=== PATIENT | female | born 1960 | race African-American/Black ===

== ENCOUNTER → 2017-01-25 | Outpatient (CLI) | payer OTHER ==
[~2017-01-25] MED LIST: DARVOCET-N 1001 TAB PO; GLUCOTROL PO; METFORMIN PO; SEROQUEL PO
--- NOTE | ~2017-01-25 | MR61 ---
[facility] A Service of [facility] & [facility] RADIOLOGY TEXT RESULTS PATIENT: JOSE ACEVES LOCATION: [facility] : 56 UNIT #: [id number] AGE: [address]: Dallas Leija Jr, MD SEX: F ORDER DR: [id number] [address] [id number] O MR#: [id number] Acc #: [id number] NAME: JOSE ACEVES : 1960 SEX: F STUDY DATE/TIME: 01/25/2017 11:16 UNIT: [facility] ROOM: STUDY DESCRIPTION: MR Foot Wo Contrast Rt Attending Physician: Dallas Leija Jr., M.D. Ordering Physician: Dallas Leija Jr., M.D. Primary Care Physician: Dallas Leija Jr., M.D. MRI CENTER REPORT This report is preliminary unless electronic signature is present. EXAM MRI right ankle and hindfoot without contrast 01/25/2017. COMPARISON No correlative studies. HISTORY Clarified order states MRI right hind foot. Right swelling. Pain, decreased range of motion. History sheet states no known injury and no ankle or foot surgery. Diffuse right foot pain, swelling. Difficulty bearing weight. Patient is ambulatory. Patient states difficulty with foot for 2-3 months, but worse over the last 2-3 weeks. History of cirrhosis, chronic kidney disease, CHF, anemia, diabetes. No wound, redness, bruising. Signature prison patient. FINDINGS There is pes planus without posterior tibial tendinopathy or tear. There is slight plantar tilt of the head of the talus as well as plantar medial displacement of the navicular with no significant navicular interposed between the talar head and the medial and lateral cuneiforms. The medial aspect of the displaced navicular appears to be in a weightbearing location. There may be a lateral navicular chronic fracture fragment interposed between the talar head and the lateral cuneiform. If this is an osseous fragment, it appears to be necrotic. 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 This large zone of avascular necrosis and/or erosion measures 2.9 cm AP x 1.6 cm craniocaudal x 1.9 cm transverse. Extending from this area of talar abnormality is loss of lateral talar cortex and adjacent soft tissue mass-like abnormality involving the flattened/ collapsed sinus tarsi and extending along the lateral margin of the talus. [facility]. [facility] A Service of [facility] RADIOLOGY TEXT RESULTS PATIENT: JOSE ACEVES LOCATION: [facility] : 56 UNIT #: [id number] AGE: [address]: Dallas Leija Jr, MD SEX: F ORDER DR: Small erosions are also noted at the apposing calcaneus near the angle of Gissane and anterior aspect of the posterior facet. There is marrow edema throughout the upper calcaneus and throughout the talus. There is tibiotalar effusion, anterior subluxation of the talar dome relative to the tibial plafond, and tibial plafond marrow edema in addition to the diffuse talar edema. No focal chondral/osteochondral lesion or loose body is noted at the tibiotalar joint. There is lack of definition of the anterior talofibular and calcaneofibular ligaments, likely sequela of old injury. Alternatively, they may be obscured by the large soft tissue masslike abnormality along the lateral hindfoot noted above, just lateral to the large talar abnormality. This large mass-like area measures at least 5.7 cm in AP dimension x 1.5 cm in transverse dimension. The ankle ligaments are otherwise unremarkable. Ankle tendons are intact except for short segment peroneus brevis retromalleolar tendinosis and mild attenuation, but no split tear. There is generalized subcutaneous and deep soft tissue edema in the hindfoot. There is mild edema of the flexor hallucis longus muscle and anterior compartment musculature in a pattern raising the possibility of denervation edema. There is also prominent atrophy of the quadratus plantae, abductor digiti minimi, extensor digitorum brevis, and flexor digitorum brevis muscles in the foot. Atrophy of the forefoot intrinsic musculature is noted. Findings most commonly related to peripheral neuropathy. No midfoot malalignment or midfoot fracture is noted. There is arthritic change at the navicular-medial and navicular-intermediate cuneiform articulations. Overall findings are most concerning for neuropathic change predominating in the talonavicular joint. Gouty arthropathy is an additional consideration. The pattern is less suggestive of infection, especially in the absence of a wound. There is marked thickening of the anterior tibiotalar joint capsule. IMPRESSION 1. 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 There is a flat foot deformity with subluxation and plantar displacement of the medial navicular which has a weightbearing location. There is a chronic fracture versus fragmentation of the STS. [facility] A Service of [facility] RADIOLOGY TEXT RESULTS PATIENT: JOSE ACEVES LOCATION: [facility] : 56 UNIT #: [id number] AGE: [address]: Dallas Leija Jr, MD SEX: F ORDER DR: lateral navicular bone, detailed above. There is uncovering of the plantar tilted head of the talus. There is a large zone of erosion versus avascular necrosis of the lateral talus with a large lateral hindfoot associated soft tissue process/mass-like abnormality. Extensive marrow edema is present of the talus and to a lesser degree, the calcaneus. The erosive/arthritic process also involves the talocalcaneal articulation and sinus tarsi, detailed above. 2. 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 3. Tibiotalar mild subluxation with joint effusion and subarticular edema. 4. The appearance is not typical for an infectious etiology, especially in the absence of a wound. 5. Multifocal muscle atrophy throughout the hindfoot, midfoot, and visualized forefoot with additional edema of the flexor hallucis longus and anterior compartment musculature in the lower leg. Findings are concerning for variable phases of denervation. In this diabetic patient, peripheral neuropathy would be the most likely etiology which could predispose the patient to Charcot arthropathy in the hindfoot. 6. Probable chronic lateral ligamentous abnormalities at the ankle. 7. Short segment peroneus brevis tendinosis and/or tear. 8. The posterior tibial tendon is intact and does not account for the flat foot deformity. 9. Exam discussed with Dr. Dallas Leija on 01/30/2017. 10. No midfoot malalignment. STAT * RESULT Dictated by... Monet Thao M.D. THIS IS AN ELECTRONICALLY VERIFIED REPORT Monet Thao M.D. at 01/30/2017 8:25 AM MASON/george TD: 01/29/2017 14:32 JOB #: [id number] MRI CENTER REPORT Page 1 of 1
== END | disposition home or self-care (01) ==
LOC: SMRI 10:05
DX: M79.671 Pain in right foot (principal)
CPT/HCPCS: 73718